=== PATIENT | female | born 1960 | race Caucasian/White ===

== ENCOUNTER → 2017-01-09 | Outpatient (CLI) | payer BC ==
--- NOTE | 2017-01-10 07:11 | MM ---
Reason for exam: clinical finding. Last mammogram was performed 1 year and 1 month ago. History: Patient is postmenopausal. Family history of breast cancer in sister at age 52, breast cancer in sister at age 45, and breast cancer in grandmother at age 80. Indicated problem(s): lump or thickening in the left breast. Physical Findings: Nurse did not find any significant physical abnormalities on exam. MG 3D Diag Mammo W/Cad GARIMA Bilateral CC and MLO view(s) were taken. Prior study comparison: December 21, 2015, bilateral MG screening mammo w CAD. June 11, 2014, mammogram, performed at [facility]. The breast tissue is heterogeneously dense. This may lower the sensitivity of mammography. Benign calcifications. There is no discrete abnormality including area of concern. These results were verbally communicated with the patient and result sheet given to the patient on 01/09/17. ASSESSMENT: Incomplete: need additional imaging evaluation, BI-RAD 0 RECOMMENDATION: Ultrasound of the left breast. Manage patient on a clinical basis.
--- NOTE | 2017-01-10 07:13 | USB ---
Reason for exam: additional evaluation requested from abnormal screening. History: Patient is postmenopausal. Family history of breast cancer in sister at age 52, breast cancer in sister at age 45, and breast cancer in grandmother at age 80. US Breast LT Left breast ultrasound includes all four quadrants, the retroareolar region and axilla. Finding demonstrate no cystic or solid lesion seen. These results were verbally communicated with the patient and result sheet given to the patient on 01/09/17. ASSESSMENT: Negative, BI-RAD 1 RECOMMENDATION: Routine screening mammogram of the left breast in 1 year. Manage patient on a clinical basis.
== END | disposition home or self-care (01) ==
LOC: RADMAMWWP 15:00
PROVIDERS: ATTEND Family Medicine
DX: N63 Unspecified lump in breast (principal)
CPT/HCPCS: 76641; G0204; G0279

== ENCOUNTER → 2017-10-12 | Outpatient (CLI) | payer BC ==
--- NOTE | 2017-10-12 13:18 | XR ---
EXAMINATION TYPE: XR cervical spine comp DATE OF EXAM: 10/12/2017 TECHNIQUE: Frontal, lateral, oblique, swimmers, and open mouth view of the cervical spine are obtaine d. HISTORY: M25.511 Pain R shoulder M54.2 Cervicalagia COMPARISON: None FINDINGS: The cervical spine is visualized in its entirety from C1 thru the top of T1 level, it is s atisfactory in alignment without evidence of acute fracture or dislocation. The pre-vertebral soft t issue appears within normal limits. The C1-C2 articulation is within normal limits on the open mouth view. Multilevel moderate degenerative disc disease is seen of the cervical spine. There is facet arthropat hy, uncovertebral hypertrophy, endplate sclerosis and intervertebral disc space narrowing with small anterior osteophytes. Evaluation for disc herniation and disc osteophyte complexes are limited on rad iograph. Degenerative changes resulting in at least mild neural foraminal stenosis at C4-C5 and C5-C6 on the left and at least moderate neural foraminal narrowing at C4-C5 and C5-C6 on the right. IMPRESSION: 1. No acute fracture or dislocation is seen in the cervical spine. 2. Moderate multilevel degenerative disc disease of the cervical spine resulting in variable degrees of neural foraminal stenosis as described above. MRI could be performed to evaluate for disc herniati on, spinal canal stenosis and better assessment of degree of neuroforaminal stenosis if clinically in dicated.
--- NOTE | 2017-10-12 13:19 | XR ---
EXAMINATION TYPE: XR shoulder complete RT DATE OF EXAM: 10/12/2017 CLINICAL HISTORY: Right shoulder pain TECHNIQUE: Three views of the right shoulder are obtained. COMPARISON: None. FINDINGS: There is no acute fracture/dislocation evident in the right shoulder. There is mild acromi oclavicular arthropathy and moderate glenohumeral arthropathy identified as marginal osteophytes, and opposing surface sclerosis and joint space narrowing. The visualized ribs are intact and unremarkab le. IMPRESSION: 1. No acute fracture or dislocation in the right shoulder. 2. Moderate glenohumeral arthropathy and mild acromioclavicular arthropathy. MR could be performed to evaluate for rotator cuff pathology if clinically indicated.
== END | disposition home or self-care (01) ==
LOC: RADXRMAIN 11:28
PROVIDERS: ATTEND Family Medicine
DX: M99.71 Connective tissue and disc stenosis of intervertebral foramina of cervical region (principal); M50.30 Other cervical disc degeneration, unspecified cervical region; M12.9 Arthropathy, unspecified
CPT/HCPCS: 72050

== ENCOUNTER → 2018-04-10 | Outpatient (CLI) | payer BC ==
--- NOTE | 2018-04-10 17:20 | BD ---
EXAMINATION TYPE: Axial Bone Density DATE OF EXAM: 04/10/2018 COMPARISON: 04.04.2016 CLINICAL HISTORY: 57 YR OLD FEMALE....ICD-10 CODE: M81.8 OSTEOPOROSIS Height: 60.3 Weight: 93 FRAX RISK QUESTIONS: NOTHING TO NOTE HERE RISK FACTORS HISTORY OF: HX OF RIB FRACTURES....> 48 YRS OLD History of Wrist Fracture: HX OF WRIST FX....< 48 YRS OLD Family History of Osteoporosis: NONE KNOWN EXCEPT SELF Active: YES Diet low in dairy products/other sources of calcium: NO Postmenopausal woman: YES AT AGE 48 Lost more than 2 inches in height since high school: YES MEDICATIONS: Additional Medications: CALCIUM AND VIT D Additional History: NONE TO NOTE EXAM MEASUREMENTS: Bone mineral densitometry was performed using the [employer] System. Bone mineral density as measured about the Lumbar spine is: ----- L1-L4(G/cm2): 0.876 T Score Values are as follows: ----- L1: -3.2 ----- L2: -2.8 ----- L3: -2.2 ----- L4: -2.3 ----- L1-L4: -2.5 Bone mineral density has: Increased 5.3% since study of: 04.04.2016 Bone mineral density about the R hip (g/cm2): 0.707 Bone mineral density about the L hip (g/cm2): 0.703 T Score values are as follows: -----R Neck: -2.6 -----L Neck: -2.6 -----R Total: -2.4 -----L Total: -2.4 Bone mineral density has: Decreased -4.6% since study of: 04.04.2016 FRAX%s: THERE IS A 17.2% CHANCE OF A MAJOR OSTEOPOROTIC FX AND A 4.0% FOR HIP FX......PROBABILITY OF FX IN 10 YRS TIME. IMPRESSION: Osteoporosis (T Score less than -2.5). There is increased fracture risk and therapy is usually indicated based on age. Re-Screen 1-2 years. NOTE: T-SCORE=SD OF THE YOUNG ADULT MEAN.
--- NOTE | 2018-04-11 11:35 | MM ---
Reason for exam: screening (asymptomatic). Last mammogram was performed 1 year and 3 months ago. History: Patient is postmenopausal. Family history of breast cancer in sister at age 52, breast cancer in sister at age 45, and breast cancer in grandmother at age 80. Physical Findings: A clinical breast exam by your physician is recommended on an annual basis and results should be correlated with mammographic findings. MG 3D Screening Mammo W/Cad Bilateral CC and MLO view(s) were taken. Prior study comparison: January 09, 2017, bilateral MG 3d diag mammo w/cad [facility]. December 21, 2015, bilateral MG screening mammo w CAD. The breast tissue is heterogeneously dense. This may lower the sensitivity of mammography. No significant changes when compared with prior studies. ASSESSMENT: Benign, BI-RAD 2 RECOMMENDATION: Routine screening mammogram of both breasts in 1 year.
== END | disposition home or self-care (01) ==
LOC: RADMAMWWP 06:44
PROVIDERS: ATTEND Family Medicine
DX: Z12.31 Encounter for screening mammogram for malignant neoplasm of breast (principal); M81.0 Age-related osteoporosis without current pathological fracture
CPT/HCPCS: 77063; 77067; 77080

== ENCOUNTER → 2019-10-19 | Outpatient (CLI) | payer BC ==
--- NOTE | 2019-10-21 12:33 | CT ---
EXAMINATION TYPE: CT chest wo/w con DATE OF EXAM: 10/19/2019 COMPARISON: None HISTORY: Solitary pulmonary nodule CT DLP: 245.80 mGycm, Automated exposure control for dose reduction was used. CONTRAST: Performed injected with 100 mL of Isovue 300. TECHNIQUE: Axial images were obtained at 5 mm thick sections. Reconstructed images are reviewed on [employer] computer in the coronal plane. FINDINGS: Portion of the thyroid visualized is normal. There is a small area of pneumonitis within the periphery of the right upper lobe. Series 4 image 18. This measures approximately 1.0 cm in length by 0.5 cm in width and has irregular borders. No enlarged mediastinal or hilar adenopathy is evident. The ascending aorta diameter at the level o f the main pulmonary artery is 2.5 cm. The main pulmonary artery diameter at the bifurcation is 2.[address] sections are obtained through the upper abdomen. There is 2.7 cm cyst within the left lobe liver measuring 12 Hounsfield units. IMPRESSIONS: 1. Irregular density posterior lateral right upper lobe. Additional workup with PET CT is recommended . A Yellow level critical message alert has been initiated for Malcolm Rice DO via the [employer] Critical Results System on 10/21/2019 12:31 PM. This message alert has been sent to Malcolm flores DO via the preferences provided by the clinician for the receipt of Radiology Critical Findings . Message ID [id number].
== END | disposition home or self-care (01) ==
LOC: RADCTMAIN 07:08
PROVIDERS: ATTEND Family Medicine
DX: J98.4 Other disorders of lung (principal)
CPT/HCPCS: 71270; Q9967

== ENCOUNTER → 2019-11-09 | Outpatient (CLI) | payer BC ==
--- NOTE | 2019-11-10 13:38 | PE ---
EXAMINATION TYPE: PET CT fusion skull to thigh DATE OF EXAM: 11/09/2019 COMPARISON: Chest CT 10/19/2019 Prior PET/CT: None HISTORY: Lung nodule solitary pulmonary nodule TECHNIQUE: Following the intravenous administration of 13.011 mCi of F-18 FDG, whole body images are performed from the skull base to the midthigh. Images are reviewed on the computer in the coronal, axial, and sagittal planes. Reconstructed rotating images are created on independent workstation and reviewed on the computer. A localization and attenuation correction CT is performed in conjunction with the PET scan. DLP: 158.52 mGycm SCAN: Initial Scan Blood glucose: 64 mg/dL Average Mediastinum SUV: 1.2 Average Liver SUV: 1.98 FINDINGS: NECK: There is intense activity along the tongue. This may be greater in the region of the vallecula . This could be some pooling from contamination. Consider direct visualization along the posterior to ngue. THORAX: There is increased signal surrounding the posterior right shoulder. This could be related to some degenerative changes. SUV value 2.07. Correlate with the patient's history. The area of pneumonitis in the posterior lateral right upper lung field has diminished in size over t he interval. Some very minimal residual remains with an SUV value of 0.32. Findings are likely relate d to inflammatory change. Residual underlying mass is not identified. Follow-up chest CT in 6 months is recommended for reevaluation. T11-12 level within the posterior spinal canal there appears to be some increased signal. Correspondi ng CT abnormality is not identified. This has an SUV value 1.63 which is intermediate and nonspecific . Artifact is favored. Recommend contrast MRI thoracic spine for additional evaluation. ABDOMEN: No abnormal uptake PELVIS: Mild increased signal is adjacent to the anastomosis at the rectosigmoid region. This has an SUV value 1.78. Monitoring is recommended. OSSEOUS STRUCTURES: No abnormal uptake LOCALIZATION CT: Ascending thoracic aorta at the level of main pulmonary artery is 2.8 cm. Main pulmo nary artery at the bifurcation is 2.1 cm. There is a large cyst within the left lobe liver which is photopenic on PET scan compatible with a cyst. COMPARISON: Lung area of pneumonitis has significantly improved over the interval. Uptake in the fidelina on of prior rectosigmoid resection with anastomosis is mildly increased which could be related to pos tsurgical change. Recurrence of neoplasm at this level should be considered if there is prior history of neoplasm. Short-term monitoring with CT can be performed. IMPRESSION: 1. No suspicious uptake within the improving right apical area of pneumonitis. 2. Increased signal at the region of an anastomosis within the pelvis of the rectosigmoid junction. C orrelate with the history. This could be postsurgical in nature. If there is been prior neoplasm, rec urrence is not excluded. Recommend short-term follow-up CT pelvis in 3 months. 3. Increase radiotracer uptake within the lower thoracic spinal canal is most likely artifactual. Thi s could be further evaluated with contrast MRI thoracic spine.
== END | disposition home or self-care (01) ==
LOC: RADPETMAIN 08:11
PROVIDERS: ATTEND Internal Medicine Critical Care Medicine
DX: K63.89 Other specified diseases of intestine (principal)
CPT/HCPCS: 78815; A9552

== ENCOUNTER → 2020-09-22 | Outpatient (CLI) | payer BC ==
--- NOTE | 2020-09-22 19:18 | BD ---
EXAMINATION TYPE: Axial Bone Density DATE OF EXAM: 09/22/2020 COMPARISON: 04/10/2018 CLINICAL HISTORY: Postmenopausal screening Height: 5 FT 1 1/2 IN Weight: 100 FRAX RISK QUESTIONS: Alcohol (3 or more units per day): NO Family History (Parent hip fracture): NO Glucocorticoids (More than 3mos): NO (Ex: prednisone, prednisolone, methylprednisolone, dexamethasone, and hydrocortisone). History of Fracture in Adulthood: YES Secondary Osteoporosis: 1. Type 1 Diabetes: NO 2. Hyperthyroidism: NO 3. Menopause before 45: NO 4. Malnutrition: NO 5. Chronic liver disease: NO Rheumatoid Arthritis: NO Current Tobacco Use: NO RISK FACTORS HISTORY OF: Family History of Osteoporosis: YES Active: YES Diet low in dairy products/other sources of calcium: NO Postmenopausal woman: AGE 48 Take estrogen and/or progesterone medications: NONE Lost more than 2 inches in height since high school: NO MEDICATIONS: Additional Medications: NONE Additional History: EXAM MEASUREMENTS: Bone mineral densitometry was performed using the [employer] System. Bone mineral density as measured about the Lumbar spine is: ----- L1-L4(G/cm2): 0.836 T Score Values are as follows: ----- L2: -3.2 ----- L3: -2.5 ----- L4: -2.9 ----- L1-L4: -2.9 Bone mineral density has: DECREASED -5.7 % since study of: 2017 Bone mineral density about the R hip (g/cm2): 0.647 Bone mineral density about the L hip (g/cm2): 0.690 T Score values are as follows: -----R Neck: -2.8 -----L Neck: -2.5 -----R Total: -2.8 -----L Total: -2.6 Bone mineral density has: DECREASED -5.4 % since study of: 2017 IMPRESSION: Osteoporosis (T Score less than -2.5). There is increased fracture risk and therapy is usually indicated based on age. Re-Screen 1-2 years. NOTE: T-SCORE=SD OF THE YOUNG ADULT MEAN.
--- NOTE | 2020-09-23 09:44 | MM ---
Reason for exam: screening (asymptomatic). Last mammogram was performed 2 years and 5 months ago. History: Patient is postmenopausal. Family history of breast cancer in sister at age 52, breast cancer in sister at age 45, and breast cancer in grandmother at age 80. Physical Findings: A clinical breast exam by your physician is recommended on an annual basis and results should be correlated with mammographic findings. MG Screening Mammo w CAD Bilateral CC, MLO, and XCCL view(s) were taken. Prior study comparison: April 10, 2018, bilateral MG 3d screening mammo w/cad. January 09, 2017, bilateral MG 3d diag mammo w/cad [facility]. The breast tissue is heterogeneously dense. This may lower the sensitivity of mammography. Stable asymmetry superior right MLO view. No significant changes when compared with prior studies. ASSESSMENT: Benign, BI-RAD 2 RECOMMENDATION: Routine screening mammogram of both breasts in 1 year.
== END | disposition home or self-care (01) ==
LOC: RADMAMWWP 07:15
PROVIDERS: ATTEND Family Medicine
DX: Z12.31 Encounter for screening mammogram for malignant neoplasm of breast (principal); M81.0 Age-related osteoporosis without current pathological fracture
CPT/HCPCS: 77067; 77080

== ENCOUNTER → 2021-07-12 | Outpatient (CLI) | payer BC ==
[~2021-07-12] MED LIST: SODIUM CHLORIDE 0.9% 500 ML 500 ML in EMPTY BAG 1 BAG IV PRN; ZOLEDRONIC ACID 5 MG in SODIUM CHLORIDE 0.9% 100 ML IV NR
[2021-07-12 07:22] VITALS: BP 108/62; PULSE 75; RESP 16; TEMP 98.1
== END ==
LOC: PROCWHC3 07:13
PROVIDERS: ATTEND Family Medicine
DX: M81.8 Other osteoporosis without current pathological fracture (principal); Z88.1 Allergy status to other antibiotic agents; Z88.5 Allergy status to narcotic agent; Z88.6 Allergy status to analgesic agent
CPT/HCPCS: 96365; J3489

== ENCOUNTER → 2022-06-10 | Outpatient (CLI) | payer BC ==
--- NOTE | 2022-06-11 10:48 | XR ---
EXAMINATION TYPE: XR shoulder complete LT DATE OF EXAM: 06/10/2022 5:15 PM INDICATION: Patient age:Female; 62 years old; Reason for study: M25.512 PAIN IN LEFT SHOULDER; COMPARISON: Contralateral shoulder 10/12/2017 TECHNIQUE: The left shoulder was examined in AP, internally rotated and scapular Y projections. . FINDINGS: No evidence of acute osseous pathology, joint dislocation, or soft tissue swelling. The remaining por tions of the visualized chest are unremarkable. Mild osteophyte formation of the glenoid and humerus. IMPRESSION: 1. No acute osseous pathology. 2. Mild left shoulder osteoarthrosis.
== END | disposition home or self-care (01) ==
LOC: RADXRMAIN 17:01
PROVIDERS: ATTEND Family Medicine
DX: M19.012 Primary osteoarthritis, left shoulder (principal)

== ENCOUNTER → 2022-06-28 | Outpatient (CLI) | payer BC ==
--- NOTE | 2022-06-29 03:21 | MR ---
EXAMINATION TYPE: MR shoulder LT wo con DATE OF EXAM: 06/28/2022 COMPARISON: None HISTORY: Left shoulder pain. Multiplanar multiecho imaging of the left shoulder without contrast. The biceps tendon is intact. There is shoulder joint effusion. There is fluid around the biceps tendo n. There is deformity of the anterior glenoid labrum consistent with a tear and scarring. There is mo derate narrowing of the glenohumeral joint space. There is spur formation. There are small tears in t he supraspinatus tendon without a definite full-thickness tear. There is no retraction. The infraspin atus tendon is intact. Subscapularis tendon is intact. AC joint is intact. No significant subacromial impingement. There are small degenerative cyst formation in the greater tuberosity of the humerus. IMPRESSION: Moderate arthritis of the glenohumeral joint. Deformity of the anterior glenoid labrum consistent wit h old trauma and tears and osteoarthritis. Shoulder joint effusion.
== END | disposition home or self-care (01) ==
LOC: RADMRIMAIN 09:38
PROVIDERS: ATTEND Family Medicine
DX: M19.012 Primary osteoarthritis, left shoulder (principal)

== ENCOUNTER → 2022-08-05 | Outpatient (CLI) | payer BC ==
--- NOTE | 2022-08-08 17:00 | MM ---
Reason for Exam: Screening (asymptomatic). Last mammogram was performed 1 year(s) and 10 month(s) ago. Patient History: Menarche at age 11. First Full-Term at age 27. Postmenopausal. Hormonal Contraceptives, from age 27 until age 28. Paternal grandmother had breast cancer, age 80. Sister had breast cancer, age 52. Sister had breast cancer, age 45. Risk Values: Traci 5 year model risk: 5.6%. NCI Lifetime model risk: 20.8%. Prior Study Comparison: 01/09/2017 Bilateral Diagnostic Mammogram, [facility]. 04/10/2018 Bilateral Screening Mammogram, [facility]. 09/22/2020 Bilateral Screening Mammogram, [facility]. Tissue Density: The breast tissue is heterogeneously dense. This may lower the sensitivity of mammography. Findings: Analyzed By CAD. Pattern appears symmetrical and stable. No suspicious groups of microcalcifications, spiculated or lobular masses, architectural distortion or other secondary signs of malignancy are mammographically apparent. Overall Assessment: Benign, BI-RAD 2 Management: Screening Mammogram of both breasts in 1 year. A negative mammogram report should not preclude additional follow up of suspicious palpable abnormalities. Patient should continue monthly self breast exam. A clinical breast exam by your physician is recommended on an annual basis and results should be correlated with mammographic findings. Electronically signed and approved by: Eduardo Hernandez D.O. Radiologis
== END | disposition home or self-care (01) ==
LOC: RADMAMWWP 10:08
PROVIDERS: ATTEND Family Medicine
DX: Z12.31 Encounter for screening mammogram for malignant neoplasm of breast (principal); Z78.0 Asymptomatic menopausal state; Z80.3 Family history of malignant neoplasm of breast
CPT/HCPCS: 77063; 77067

== ENCOUNTER → 2022-08-22 | Outpatient (CLI) | payer BC ==
[2022-08-22 13:10] VITALS: BP 113/72; PULSE 89; RESP 16; TEMP 97.6
== END ==
LOC: PROCWHC3 12:57
PROVIDERS: ATTEND Family Medicine
DX: M81.8 Other osteoporosis without current pathological fracture (principal); Z88.0 Allergy status to penicillin; Z88.5 Allergy status to narcotic agent; Z88.6 Allergy status to analgesic agent
CPT/HCPCS: 96365; J3489

== ENCOUNTER → 2023-01-06 | Outpatient (CLI) | payer BC ==
--- NOTE | 2023-01-06 13:32 | BD ---
EXAMINATION TYPE: Axial Bone Density DATE OF EXAM: 01/06/2023 CLINICAL HISTORY: 62 years old Female. ICD-10 CODE: M81.8 other osteoporosis without current patholo gical fractu Comparison: Prior DEXA bone scan 2020 Height: 60 Weight: 98 FRAX RISK QUESTIONS: Family History (Parent hip fracture): yes Glucocorticoids (More than 3mos): (Ex: prednisone, prednisolone, methylprednisolone, dexamethasone, and hydrocortisone). History of Fracture in Adulthood: yes RISK FACTORS HISTORY OF: hx of rib fxs many times as an adult History of Wrist Fracture: hx of right wrist fx as an adult Family History of Osteoporosis: yes Active: yes Postmenopausal woman: yes, at 48 Lost more than 2 inches in height since high school: yes Hyperparathyroidism: no Adrenal Insufficiency: no MEDICATIONS: Prednisone or other steroids: on and off for illness Osteoporosis Medications: yes, Reclast and Prolia last dose 8 mos ago Additional Medications: calcium and vit d Additional History: osteoporosis, tiny frame, EXAM MEASUREMENTS: Bone mineral densitometry was performed using the [employer] System. Bone mineral density as measured about the Lumbar spine is: ----- L1-L4(G/cm2): 0.885 T Score Values are as follows: ----- L1: -3.4 ----- L2: -2.9 ----- L3: -1.9 ----- L4: -2.1 ----- L1-L4: -2.5 Z Score Values are as follows: ----- L1: -1.1 ----- L2: -0.7 ----- L3: 0.4 ----- L4: 0.2 ----- L1-L4: -0.2 Bone mineral density has: Increased 5.9% since study of: 09.22.2020 Bone mineral density about the R hip (g/cm2): 0.696 Bone mineral density about the L hip (g/cm2): 0.722 T Score values are as follows: -----R Neck: -2.7 -----L Neck: -2.6 -----R Total: -2.5 -----L Total: -2.3 Z Score values are as follows: -----R Neck: -0.8 -----L Neck: -0.7 -----R Total: -0.8 -----L Total: -0.6 Bone mineral density has: Increased 5.5% since study of: 09.22.2020 FRAX%s: The graph provided illustrates a 33.9% chance for a major osteoporotic fx and a 5.5% chance f or the hips probability for fx in 10 years time. IMPRESSION: Osteoporosis (T Score less than -2.5). There is increased fracture risk and therapy is usually indicated based on age. Re-Screen 1-2 years. NOTE: T-SCORE=SD OF THE YOUNG ADULT MEAN.
== END | disposition home or self-care (01) ==
LOC: RADBDWWP 11:18
PROVIDERS: ATTEND Family Medicine
DX: M81.0 Age-related osteoporosis without current pathological fracture (principal); M85.89 Other specified disorders of bone density and structure, multiple sites; Z78.0 Asymptomatic menopausal state
CPT/HCPCS: 77080

== ENCOUNTER → 2023-08-07 | Outpatient (CLI) | payer BC ==
--- NOTE | 2023-08-08 12:19 | MM ---
Reason for Exam: Screening (asymptomatic). Last screening mammogram was performed 12 month(s) ago. Patient History: Menarche at age 11. First Full-Term at age 27. Postmenopausal. Hormonal Contraceptives, from age 27 until age 28. Paternal grandmother had breast cancer, age 80. Sister had breast cancer, age 52. Sister had breast cancer, age 45. Risk Values: Traci 5 year model risk: 5.7%. NCI Lifetime model risk: 20.2%. Prior Study Comparison: 04/10/2018 Bilateral Screening Mammogram, [facility]. 09/22/2020 Bilateral Screening Mammogram, [facility]. 08/05/2022 Bilateral MG 3D screening mammo w/cad, [facility]. Tissue Density: The breast tissue is heterogeneously dense. This may lower the sensitivity of mammography. Findings: Analyzed By CAD. There is no suspicious group of microcalcifications or new suspicious mass in either breast. Overall Assessment: Negative, BI-RAD 1 Management: Screening Mammogram of both breasts in 1 year. . Patient should continue monthly self-breast exams. A clinical breast exam by your physician is recommended on an annual basis. This exam should not preclude additional follow-up of suspicious palpable abnormalities. Note on Traci scores and lifetime risk: 1. A Traci score greater than 3% is considered moderate risk. If this is the case, consider specialist referral to assess eligibility for a risk reducing agent. 2. If overall lifetime risk for the development of breast cancer is 20% or higher, the patient may qualify for future screening with alternating mammogram and breast MRI. Electronically signed and approved by: Dany Alas M.D. Radiologis
== END | disposition home or self-care (01) ==
LOC: RADMAMWWP 07:37
PROVIDERS: ATTEND Family Medicine
DX: Z12.31 Encounter for screening mammogram for malignant neoplasm of breast (principal); Z78.0 Asymptomatic menopausal state; Z80.3 Family history of malignant neoplasm of breast
CPT/HCPCS: 77063; 77067

== ENCOUNTER → 2023-08-23 | Outpatient (CLI) | payer BC ==
[2023-08-23 13:13] VITALS: BP 106/62; PULSE 70; RESP 16; TEMP 97.7
== END ==
LOC: PROCWHC3 12:35
PROVIDERS: ATTEND Family Medicine
DX: M81.8 Other osteoporosis without current pathological fracture (principal)
CPT/HCPCS: 96365; J3489

== ENCOUNTER → 2024-09-16 | Outpatient (CLI) | payer BC ==
--- NOTE | 2024-09-16 13:04 | MM ---
Reason for Exam: Screening (asymptomatic). Last mammogram was performed 1 year(s) and 2 month(s) ago. Patient History: Menarche at age 11. First Full-Term at age 27. Postmenopausal. Hormonal Contraceptives, from age 27 until age 28. Paternal grandmother had breast cancer, age 80. Sister had breast cancer, age 52. Sister had breast cancer, age 45. Risk Values: Traci 5 year model risk: 5.8%. NCI Lifetime model risk: 19.5%. Prior Study Comparison: 09/22/2020 Bilateral Screening Mammogram, [facility]. 08/05/2022 Bilateral MG 3D screening mammo w/cad, [facility]. 08/07/2023 Bilateral MG 3D screening mammo w/cad, [facility]. Tissue Density: The breasts are heterogeneously dense, which may obscure small masses. Findings: Analyzed By CAD. Right breast: There is no suspicious group of microcalcifications or new suspicious mass. Left breast: There is no suspicious group of microcalcifications or new suspicious mass. Overall Assessment: Negative, BI-RAD 1 Management: Screening Mammogram of both breasts in [address] [facility] will attempt to contact patient to return for supplemental views and ultrasound if indicated. Patient should continue monthly self-breast exams. A clinical breast exam by your physician is recommended on an annual basis. This exam should not preclude additional follow-up of suspicious palpable abnormalities. Note on Traci scores and lifetime risk: 1. A Traci score greater than 3% is considered moderate risk. If this is the case, consider specialist referral to assess eligibility for a risk reducing agent. 2. If overall lifetime risk for the development of breast cancer is 20% or higher, the patient may qualify for future screening with alternating mammogram and breast MRI. [facility], , 09/16/2024 12:47 PM. Electronically signed and approved by: Weston Umana DO
== END | disposition home or self-care (01) ==
LOC: RADMAMWWP 10:57
PROVIDERS: ATTEND Family Medicine
DX: Z12.31 Encounter for screening mammogram for malignant neoplasm of breast (principal); Z78.0 Asymptomatic menopausal state; Z80.3 Family history of malignant neoplasm of breast; R92.333 Mammographic heterogeneous density, bilateral breasts
CPT/HCPCS: 77063; 77067

== ENCOUNTER → 2024-09-18 | Outpatient (CLI) | payer BC ==
[~2024-09-18] MED LIST changes: +SODIUM CHLORIDE 0.9% 250 ML in EMPTY BAG 1 BAG IV PRN; -SODIUM CHLORIDE 0.9% 500 ML 500 ML in EMPTY BAG 1 BAG IV PRN; -ZOLEDRONIC ACID 5 MG in SODIUM CHLORIDE 0.9% 100 ML IV NR
[2024-09-18 14:05] VITALS: BP 134/76; PULSE 100; RESP 16; TEMP 97.4
[2024-09-18] MEDS: SODIUM CHLORIDE 0.9% 500 ML 500 ML in EMPTY BAG 1 BAG IV PRN (14:08)
[2024-09-18] MEDS: ZOLEDRONIC ACID 5 MG in SODIUM CHLORIDE 0.9% 100 ML IV NR (14:09)
== END ==
LOC: PROCWHC3 13:57
PROVIDERS: ATTEND Family Medicine
DX: M81.8 Other osteoporosis without current pathological fracture (principal)
CPT/HCPCS: 96365; J3489